=== PATIENT | male | born 1940 | race Caucasian/White ===

== ENCOUNTER 2016-02-21 05:13 | Inpatient (IN) | payer OTHER ==
[2016-02-02 09:09] LABS: HEMATOCRIT 43.1 % (42.0-52.0); HEMOGLOBIN 14.6 gm/dL (14.0-18.0); MCH 32.5 pg (26.0-34.0); MCHC 33.8 % (28.0-37.0); MCV 96.3 fL (80.0-100.0); RBC 4.48 mil/uL (4.50-6.00); RDW 12.3 % (10.5-14.5); WBC 7.9 thou/uL (4.0-11.0)
[2016-02-02 09:18] LABS: CALCIUM 8.4 mg/dL (8.5-10.1); CREATININE 1.2 mg/dL (0.6-1.3); POTASSIUM 4.1 mmol/L (3.5-5.1)
[2016-02-02 09:21] LABS: INR 1.1; PROTIME 11.2 Seconds (9.3-11.4)
[2016-02-02 09:46] LABS: URINE BILIRUBIN NEGATIVE (Negative); URINE BLOOD NEGATIVE (Negative); URINE COLOR YELLOW; URINE GLUCOSE-RANDOM* NEGATIVE (Negative); URINE KETONES TRACE (Negative); URINE LEUKOCYTES-REFLEX NEGATIVE (Negative); URINE PROTEIN (DIPSTICK) NEGATIVE (Negative); URINE SPECIFIC GRAVITY 1.025 (1.003-1.035); URINE UROBILINOGEN 0.2 E.U./dl (0.2-1.0)
[~2016-02-21] VITALS: Ht 185.4 cm; Wt 105.2 kg
[2016-02-21] VITALS (9 sets, daily range): BP systolic 104–132; BP diastolic 60–83
--- NOTE | ~2016-02-21 | D ---
[facility] [place] [address] DISCHARGE SUMMARY Name: CARINA TEJEDA Room #: 539-P [facility] IN .R.#: [id number] Admission: 02/21/16 Attend Phys: Aaron Pop MD Discharge: 02/24/16 Date of : 44 Report #: [id number] THIS REPORT FOR: //name// CC: Aaron Hopson DATE OF SERVICE: 02/24/2016 FINAL DIAGNOSES: 1. End-stage degenerative arthritis, left knee. 2. Parkinson disease. 3. Hypertension. OPERATION PROCEDURES: Left total knee arthroplasty. HISTORY: This still active and independent 75-year-old gentleman has problems with progressive degenerative arthritis involving both knees. He also has a problem with Parkinson disease and some gradually progressive difficulty with ambulation. This combination results in more significant problems and his feel he may loosely be remain independent; therefore, they have elected to go ahead with total knee arthroplasty, beginning on the left side. HOSPITAL COURSE: The patient was admitted and taken to the operating room on 02/21/2016. He underwent left total knee arthroplasty, which he tolerated well. Postoperatively, his course was largely unremarkable. He did nicely with organized therapy and was able to advance to independent ambulation using a walker. His balance is satisfactory despite his Parkinson disease. His left knee pain is manageable on occasional tramadol. He continues on his other routine medications. He seemed to be safe and ready for discharge on 02/24/2016. DISCHARGE MEDICATIONS: Include Colace 100 mg b.i.d., MiraLax 1 pack daily, omeprazole 20 mg daily, Zantac 150 mg daily, simvastatin 40 mg daily, Sinemet 25/100 two tablets q.i.d., Aricept 5 mg daily, Xarelto 10 mg daily, Ultram 50 mg q. 3-4 hours p.r.n. for pain. He will continue with home visiting therapy and independent exercise. I have asked he or his to give me a call should any problems or questions. We will plan to see him back in the office for followup and suture removal in about 2 weeks. <ELECTRONICALLY SIGNED> By: Aaron Pop MD 02/29/16 0816 1345 1506 Aaron Pop MD /nt
--- NOTE | ~2016-02-21 | H ---
[facility] [place] [address] HISTORY AND PHYSICAL Name: TEJEDACARINA Latrice Room #: 539-P ADM IN M.R.#: [id number] Admission: 02/21/16 Attend Phys: Aaron Pop MD Discharge: Date of : 44 Report #: [id number] THIS REPORT FOR: //name// For History and Physical, please see office documentation/handwritten note in the patient's medical record. <ELECTRONICALLY SIGNED> By: Aaron Pop MD 02/24/16 1347 1534 Aaron Pop MD /
--- NOTE | ~2016-02-21 | O ---
[facility] [place] [address] OPERATIVE REPORT Name: CARINA TEJEDA Room #: 539-P [facility] IN M.R.#: [id number] Admission: 02/21/16 Attend Phys: Aaron Pop MD Discharge: Date of : 44 Report #: [id number] THIS REPORT FOR: //name// CC: Aaron Hopson PREOPERATIVE DIAGNOSIS: End-stage degenerative arthritis, left knee with varus malalignment. POSTOPERATIVE DIAGNOSIS: End-stage degenerative arthritis, left knee with varus malalignment. PROCEDURE: Left total knee arthroplasty. SURGEON: Aaron Pop MD. INDICATIONS: This still active, independent 75-year-old gentleman, presents with progressive bilateral knee pain. He has significant symptoms bilaterally, and x-rays are actually a bit more severe on the right side. His subjective complaints, however, more severe on the left with generalized knee pain, swelling, and moderate varus malalignment. We have elected to go ahead with left total knee arthroplasty. He and his understand well the treatment options and risks and benefits of the procedure. DESCRIPTION OF PROCEDURE: The patient was taken to the operating room, where he was placed under general anesthesia. Prophylactic intravenous antibiotics were administered. The left knee and leg were meticulously prepped and draped, and a thigh tourniquet was inflated to 300 mmHg. An anterior longitudinal skin incision was made. This was carried through the medial retinaculum, reflecting the patella laterally. Marked degenerative change in all 3 compartments was noted. The DePuy PFC knee system was utilized. Intramedullary guides were used on both the femur and the tibia. The femur was cut in 5 degrees of valgus. The tibia cut perpendicular to the long axis of the bone. Sufficient bone was resected to correct the 10-15 degree preoperative flexion contracture. The femur seemed best suited for a size 4 femoral component. The tibia also fit nicely with a size 4 tibial component. The patella was best suited for a size 41 mm patellar button. A trial reduction was performed and a 12.5 mm insert seated nicely. A limited medial release was accomplished allowing good improvement in the varus malalignment. The knee demonstrated full knee extension and flexion, beyond 125 degrees with satisfactory stability. The patella seemed to track nicely. The components were removed, and the surfaces were thoroughly irrigated and dried. The intramedullary canal was blocked with a bone block on both the femoral and tibial side. The methyl methacrylate cement was mixed and injected into the porous surface of the proximal tibia. The DePuy PFC size 4 tibial component was impacted into position. It seated nicely and appeared to be secure. Excess cement was removed from around its margin. A 12.5 mm polyethylene insert was then snapped into place. It seated [address] [address] OPERATIVE REPORT Name: NIKHILCARINA F Room #: 539-P [facility] IN M.R.#: [id number] Admission: 02/21/16 Attend Phys: Aaron Pop MD Discharge: Date of : 44 Report #: [id number] nicely and appeared to be secure. The size 4 left femoral component was impacted on the distal femur. A small amount of methyl methacrylate cement was used at the anchor studs as there did seem to be slight osteopenia in this region. The component seated nicely and appeared to be secure. The 41 mm patellar button was inserted with appropriate anchor holes and cement. It was secured with a patellar clamp until the cement had hardened. All excess cement was removed from around its margin. At this point, the knee was once again tested demonstrating good alignment, range of motion and stability. The patella tracked nicely and appeared to be stable. The tourniquet was deflated after a total tourniquet time of 44 minutes. A single Hemovac was left in the wound, exiting through a separate stab incision. The fascia was closed with multiple #1 Vicryl sutures. The subcutaneous tissues were closed with 0 Monocryl. The skin was closed with skin margaret. A sterile dressing was applied. The patient was awakened and returned to the recovery room in good condition. <ELECTRONICALLY SIGNED> By: Aaron Pop MD 02/23/16 0818 1050 [id number] Aaron Pop MD /nt
[~2016-02-21 05:13] MED LIST: ARICEPT 5 MG TAB5 MG PO; CENTRUM SILVER1 EAC4 PO; IRON325 PO; OMEPRAZOLE 20 M20 M1 PO; SIMVASTATIN40 MG PO; SINEMET 25-1001 EAC1 PO; ZANTAC 150MG T150 MG PO
[2016-02-22 05:01] VITALS: BP 110/64
[2016-02-22 06:01] LABS: HEMATOCRIT 37.2 % (42.0-52.0); HEMOGLOBIN 12.6 gm/dL (14.0-18.0); MCH 32.7 pg (26.0-34.0); MCHC 33.9 % (28.0-37.0); MCV 96.4 fL (80.0-100.0); RBC 3.86 mil/uL (4.50-6.00); RDW 12.3 % (10.5-14.5); WBC 9.7 thou/uL (4.0-11.0)
[2016-02-22 08:10] VITALS: BP 94/72
[2016-02-22 20:02] VITALS: BP 102/63
[2016-02-23] VITALS: BP 107/62
[2016-02-23 04:36] VITALS: BP 102/64
[2016-02-23 06:20] LABS: HEMATOCRIT 31.8 % (42.0-52.0); MCH 33.3 pg (26.0-34.0); MCHC 34.7 % (28.0-37.0); MCV 95.9 fL (80.0-100.0); RBC 3.32 mil/uL (4.50-6.00); RDW 12.3 % (10.5-14.5); WBC 10.7 thou/uL (4.0-11.0)
[2016-02-23 07:32] VITALS: BP 115/69
[2016-02-23 16:45] VITALS: BP 105/51
[2016-02-23 20:22] VITALS: BP 113/67
[2016-02-24 03:43] VITALS: BP 116/68
[2016-02-24 04:49] LABS: HEMATOCRIT 33.4 % (42.0-52.0); HEMOGLOBIN 11.2 gm/dL (14.0-18.0); MCH 33.1 pg (26.0-34.0); MCHC 33.6 % (28.0-37.0); MCV 98.5 fL (80.0-100.0); RBC 3.39 mil/uL (4.50-6.00); RDW 12.3 % (10.5-14.5); WBC 10.4 thou/uL (4.0-11.0)
[2016-02-24 07:30] VITALS: BP 114/72
[2016-02-24] MEDS ORDERED: COLACE100 MG PO (12:14)
[2016-02-24] MEDS ORDERED: MIRALAX17 GM PO (12:14)
[2016-02-24 12:35] VITALS: BP 122/79
[2016-02-24 13:50] VITALS: BP 122/79
[2016-02-24 14:34] VITALS: BP 122/79
== END 2016-02-24 15:35 | disposition home or self-care (01) | DRG 470 ==
LOC: 5S 05:13 → TBA 05:13 → PRE 08:23 → 5S 12:37 → PRE 13:12 → 5S 02-24 15:35
PROVIDERS: Orthopaedic Surgery
PROC: 0SRD0J9 Replacement of Left Knee Joint with Synthetic Substitute, Cemented, Open Approach (ICD-10-PCS; principal; 2016-02-21)
DX: M17.12 Unilateral primary osteoarthritis, left knee (principal); G20 Parkinson's disease; E78.5 Hyperlipidemia, unspecified; I11.0 Hypertensive heart disease with heart failure; I50.9 Heart failure, unspecified; I95.9 Hypotension, unspecified; E66.9 Obesity, unspecified; M17.11 Unilateral primary osteoarthritis, right knee; K21.9 Gastro-esophageal reflux disease without esophagitis; K59.00 Constipation, unspecified; Z28.21 Immunization not carried out because of patient refusal; Z87.891 Personal history of nicotine dependence; Z79.899 Other long term (current) drug therapy; Z79.01 Long term (current) use of anticoagulants; Z85.46 Personal history of malignant neoplasm of prostate; Z86.73 Personal history of transient ischemic attack (TIA), and cerebral infarction without residual deficits; Z98.52 Vasectomy status; Z68.30 Body mass index [BMI] 30.0-30.9, adult
CPT/HCPCS: 10785; 50010; 50101; 50415; 50954; 51130; 51225; 51771; 53000; 53364; 56525; 62110; 62900; 70005